=== PATIENT | female | born 1990 | race Caucasian/White ===

== ENCOUNTER 2016-10-15 13:10 | Emergency (ER) | payer BC, OTHER ==
[2016-10-15 13:19] VITALS: BP 121/74
[2016-10-15] MEDS ORDERED: Acetaminophen TAB* 325 MG PO ONE (13:56)
--- NOTE | 2016-10-15 14:01 | UC ---
Laceration HPI - HPI Summary HPI Summary: here with mother complaint of laceration on your left pointer finger occurred today at 12:45 bleed a lot and came to throbbing pain at this time hasn't taken any medication - History Of Current Complaint Chief Complaint: UCLaceration Stated Complaint: FINGER LAC Time Seen by Provider: 10/15/16 13:54 Laceration Location: Finger - Allergies/Home Medications Allergies/Adverse Reactions: Allergies Allergy/AdvReac Type Severity Reaction Status Date / Time Cefaclor [From Ceclor] Allergy Unknown Verified 10/15/16 13:19 Reaction Details Home Medications: Home Medications Ascorbic Acid TAB* [Vitamin C TAB*] 1 tab PO DAILY 10/15/16 [History Confirmed 10/15/16] PMH/Surg Hx/FS Hx/Imm Hx Previously Healthy: Yes Endocrine History Of: Reports: Dyslipidemia Denies: Diabetes, Thyroid Disease, Hyperthyroidism, Hypothyroidism Cardiovascular History Of: Denies: Cardiac Disorders, Hypertension, Pacemaker/ICD, Myocardial Infarction , Congestive Heart Failure, Atrial Fibrillation, Deep Vein Thrombosis, Bleeding Disorders Respiratory History Of: Denies: COPD, Asthma, Bronchitis, Pneumonia, Pulmonary Embolism GI/ History Of: Reports: Gastroesophageal Reflux Denies: Ulcer, Renal Disease Neurological History Of: Denies: TIA, CVA, Dementia, Seizures, Migraine Psychological History Of: Denies: Anxiety, Depression, Bipolar Disorder, Schizophrenia, Post Traumatic Stress Disorder Cancer History Of: Denies: Lung Cancer, Colorectal Cancer, Breast Cancer, Prostate Cancer, Cervical Cancer - Surgical History Surgical History: Yes Surgery Procedure, Year, and Place: appendectomy; T & A; ovarian and fallopian tube cyst removed - Family History Known Family History: Positive: Cardiac Disease - parents, Hypertension - parents Negative: Diabetes - Social History Occupation: Employed Full-time Lives: With Family Alcohol Use: Weekly Substance Use Type: None Smoking Status (MU): Former Smoker - Immunization History Most Recent Influenza Vaccination: 2014 Most Recent Tetanus Shot: 2004 Most Recent Pneumonia Vaccination: never Review of Systems Constitutional: Negative Skin: Other - laceration Eyes: Negative ENT: Negative Respiratory: Negative Cardiovascular: Negative Gastrointestinal: Negative Genitourinary: Negative Motor: Negative Neurovascular: Negative Musculoskeletal: Negative Neurological: Negative Psychological: Negative All Other Systems Reviewed And Are Negative: Yes Physical Exam Triage Information Reviewed: Yes Appearance: No Pain Distress, Well-Nourished Vital Signs: Initial Vital Signs Temp 98.1 F 10/15/16 13:14 Pulse 74 10/15/16 13:14 Resp 18 10/15/16 13:14 BP 121/74 10/15/16 13:14 Pulse Ox 99 10/15/16 13:14 Vital Signs Reviewed: Yes Eyes: Positive: Conjunctiva Clear ENT: Positive: Pharynx normal, TMs normal Neck: Positive: No Lymphadenopathy Respiratory: Positive: Lungs clear, Normal breath sounds, No respiratory distress Cardiovascular: Positive: RRR, No Murmur Abdomen Description: Positive: Nontender, Soft Bowel Sounds: Positive: Present Musculoskeletal Exam: Normal Neurological: Positive: Alert Psychological Exam: Normal Skin Exam: Other - left pointer finger with lacertion Laceration Repair - Laceration Repair 1 Description: Linear Laceration Size After Repair: Length (cm) - 1cm, Width (mm) - 2mm, Depth (mm) - 4mm Modified For Repair: No Type Injection: Local Anesthesia Used: 2.0% Lido Cleansing Completed Via Routine Prep: Yes Irrigation With Pressure Irrigation Device: Yes Closure Material: Sutures - 3 Closure Method: Single Layer Suture Of: Skin Suture Type: Nylon Laceration Course/Dx - Differential Dx - Laceration/Wound Differental Diagnoses: Laceration Provider Diagnoses: simple laceration left pointer finger Discharge - Discharge Plan Condition: Stable Disposition: HOME Patient Education Materials: Laceration (ED), Care For Your Stitches (ED) Referrals: Kiran Smith MD [Primary Care Provider] - Additional Instructions: LACERATION What is a Laceration? Laceration is the medical name for a cut. Lacerations may be large or small. Some lacerations need stitches (also called sutures) to close them so they will heal well. Stitches usually need to be placed within 6 hours of injury. There are times when a wound may be determined to be too old for stitches. Stitches are removed when the wound is strong enough to stay closed, which is usually in 3 to 15 days, depending on where the wound or cut is located. Some stitches dissolve by themselves and do not need to be removed. If you have been given a numbing medicine, there will be some pain when it wears off. The pain from the wound should begin to decrease within one day. Treatment Recommendations: Keep the wound clean and dry for at least the next two (2) days. Keep the dressing clean if at all possible. If you must work in surroundings that will dirty the wound or dressing, wear a protective covering such as a glove. If the wound does get dirty, clean it as soon as you can with mild soap and water using a patting action. Do not rub or scrub vigorously. Then pat it dry completely. If a dressing was placed on the wound, you should put a clean one on at least daily and whenever you clean the wound. You can apply antibiotic ointment such as Bacitracin ointment to the wound each time you change the dressing. Avoid using the injured part as much as possible. If the wound is near a joint , try not to bend the joint too much. Elevate the injured part above your heart whenever possible to relieve throbbing. If you had stitches put in, you should see your healthcare provider in 1 to 2 days to have the wound checked for any signs or symptoms of infection. Some stitches will dissolve by themselves. Others will need to be removed. Make an appointment with your healthcare provider to have the stitches removed on the date instructed. An antibiotic medicine may be prescribed. The medicine should be taken until it is completely gone, even if you are feeling better. If you stop taking the medicine early, the infection may not be completely gone, and the medicine may not work the next time. Call Your Doctor or Return Here IF: Your wound becomes red, warm, swollen or more painful. There are red streaks coming from the wound. You develop a fever or shaking chills. Pus or bad smelling fluid comes out of the wound. You have any other symptoms that worry you.
[2016-10-15] MEDS ORDERED: Lidocaine 2% PF* 10 ML AMP INJ ONE (14:03)
[2016-10-15] MEDS ORDERED: Lidocaine 2% PF * 5 ML VIAL ONE (14:07)
[2016-10-15] MEDS ORDERED: Tetan/Diph/Pertus SYR(Tdap)* 0.5 ML SYR(BOOSTRIX) use SYR IM ONE (14:33)
== END 2016-10-15 14:56 | disposition home or self-care (01) ==
LOC: UCEAST 13:10
DX: S61.211A Laceration without foreign body of left index finger without damage to nail, initial encounter (principal); W45.8XXA Other foreign body or object entering through skin, initial encounter; Y93.9 Activity, unspecified; Y99.9 Unspecified external cause status; E78.5 Hyperlipidemia, unspecified; Z88.8 Allergy status to other drugs, medicaments and biological substances
CPT/HCPCS: 12001; 90471; 90715; 99211; 99212; A9270-GY; G0463; J2001

== ENCOUNTER 2017-11-19 16:02 | Emergency (ER) | payer BC ==
[2017-11-19 16:19] VITALS: BP 134/78
--- NOTE | 2017-11-19 16:55 | UC ---
Skin Complaint HPI - HPI Summary HPI Summary: 27 yo female with asymptomatic bilateral leg rash x 2 weeks she did have an antecedent illness about 4-5 weeks ago severe resp illness for which she received Z-melisa no f/c no n/v/d no abd pain - History of Current Complaint Chief Complaint: UCLowerExtremity Time Seen by Provider: 11/19/17 16:30 Stated Complaint: RASH Hx Obtained From: Patient Hx Last Menstrual Period: 07/22/17 Onset/Duration: Gradual Onset, Lasting Weeks - 2 Timing: Constant Onset Severity: Mild Current Severity: Mild Pain Intensity: 0 Pain Scale Used: 0-10 Numeric Location: Other - started on left leg and spread to right Character: Redness Aggravating Factor(s): Nothing Alleviating Factor(s): Nothing Associated Signs & Symptoms: Positive: Rash - Allergy/Home Medications Allergies/Adverse Reactions: Allergies Allergy/AdvReac Type Severity Reaction Status Date / Time cefaclor Allergy Difficulty Verified 11/19/17 16:20 Breathing Review of Systems Constitutional: Negative Skin: Rash Eyes: Negative ENT: Negative Respiratory: Negative Cardiovascular: Negative Gastrointestinal: Negative Genitourinary: Negative Motor: Negative Neurovascular: Negative Musculoskeletal: Negative Neurological: Negative Psychological: Negative Is Patient Immunocompromised?: No All Other Systems Reviewed And Are Negative: Yes PMH/Surg Hx/FS Hx/Imm Hx Previously Healthy: Yes - Surgical History Surgical History: Yes Surgery Procedure, Year, and Place: appendectomy; T & A; ovarian and fallopian tube cyst removed - Family History Known Family History: Positive: Cardiac Disease - parents, Hypertension - parents, Diabetes - Social History Alcohol Use: Weekly Substance Use Type: None Smoking Status (MU): Former Smoker - Immunization History Most Recent Influenza Vaccination: 2014 Most Recent Tetanus Shot: 2004 Most Recent Pneumonia Vaccination: never Physical Exam Triage Information Reviewed: Yes Appearance: Well-Appearing, No Pain Distress, Well-Nourished Vital Signs: Initial Vital Signs Temp 98 F 11/19/17 16:13 Pulse 79 11/19/17 16:13 Resp 18 11/19/17 16:13 BP 134/78 11/19/17 16:13 Pulse Ox 100 11/19/17 16:13 Vital Signs Reviewed: Yes Eyes: Positive: Conjunctiva Clear ENT: Positive: Other - no intraoral lesions Neck: Positive: Supple, Nontender, No Lymphadenopathy Respiratory: Positive: Lungs clear, Normal breath sounds, No respiratory distress, No accessory muscle use Cardiovascular: Positive: RRR, No Murmur Abdomen Description: Positive: Nontender, No Organomegaly. Negative: CVA Tenderness (R), CVA Tenderness (L) Bowel Sounds: Positive: Present Musculoskeletal: Positive: ROM Intact, No Edema Neurological: Positive: Alert Psychological Exam: Normal Skin Exam: Other - purpura (few scatterred lesions) left >right leg/not palpable Course/Dx - Diagnoses Provider Diagnoses: vasculitis of uncertain cause Discharge - Sign-Out/Discharge Documenting (check all that apply): Discharge/Admit/Transfer - Discharge Plan Condition: Stable Disposition: HOME Patient Education Materials: Purpura (ED) Referrals: Kiran Smith MD [Primary Care Provider] - If Needed Rocio Gauthier [Medical Doctor] - As Soon As Possible - Billing Disposition and Condition Condition: STABLE Disposition: Home
[2017-11-19 18:18] LABS: ABS Basophils 0 10^3/ul (0-0.2); ABS Eosinophils 0.1 10^3/ul (0-0.6); ABS Lymphocytes 2.8 10^3/ul (1.0-4.8); ABS Monocytes 0.4 10^3/ul (0-0.8); ABS Neutrophils 3.5 10^3/ul (1.5-7.7); ABS Nucleated RBC 0 10^3/ul; Eosinophil % 1.3 % (0-6); Hematocrit 40 % (35-47); Hemoglobin 13.6 g/dl (12.0-16.0); Lymphocyte % 41.2 % (25-47); Mean Corpuscular HGB Conc 34 g/dl (31-36); Mean Corpuscular Hemoglobin 28 pg (27-31); Mean Corpuscular Volume 84 fL (80-97); Mean Platelet Volume 8.9 um3 (7.4-10.4); Nucleated Red Blood Cells % 0; Platelet Count 218 10^3/ul (150-450); Red Cell Distribution Width 13 % (10.5-15); White Blood Count 6.7 10^3/ul (3.5-10.8)
[2017-11-19 18:37] LABS: EGFR Non-African American 87.9 (>60)
== END 2017-11-19 17:10 | disposition home or self-care (01) ==
LOC: UCEAST 16:02
DX: I77.6 Arteritis, unspecified (principal); Z88.1 Allergy status to other antibiotic agents; Z87.891 Personal history of nicotine dependence
CPT/HCPCS: 36415; 80053; 81003; 85025; 85652; 86038; 86140; 99211; G0463

== ENCOUNTER 2018-03-14 13:40 | Emergency (ER) | payer BC ==
[2018-03-14 14:16] VITALS: BP 134/73
--- NOTE | 2018-03-14 14:21 | UC ---
FLU HPI - HPI Summary HPI Summary: 27 yo female presents accompanied by mother with flu-like symptoms. Pt tells me that 2 days ago she was on a plane to [place] and began to feel "sick" with body aches and fatigue. The next day she developed a fever, increased body aches, and increased fatigue. Today her symptoms have persisted. She tells me that her fever this morning was 102.5F and she took advil around 1100 and fever has improved. She denies sore throat, cough, SOB, chest pain, abdominal pain, n/v/d/ c, dysuria. - History of Current Complaint Chief Complaint: UCGeneralIllness Stated Complaint: FEVER BODYACHES COUGH SORE THROAT Time Seen by Provider: 03/14/18 14:21 Hx Obtained From: Patient, Family/Engineering Design Manager Hx Last Menstrual Period: 2 months ago Onset/Duration: Gradual Onset Severity Currently: Mild Severity Initially: Moderate Pain Intensity: 5 Pain Scale Used: 0-10 Numeric - Allergy/Home Medications Allergies/Adverse Reactions: Allergies Allergy/AdvReac Type Severity Reaction Status Date / Time cefaclor Allergy Difficulty Verified 03/14/18 14:16 Breathing Home Medications: Home Medications guaiFENesin [Mucinex] 1 tab PO BID 03/14/18 [History Confirmed 03/14/18] PMH/Surg Hx/FS Hx/Imm Hx - Additional Past Medical History Additional PMH: None - Surgical History Surgical History: Yes Surgery Procedure, Year, and Place: appendectomy; T & A; ovarian and fallopian tube cyst removed - Family History Known Family History: Positive: Cardiac Disease - parents, Hypertension - parents, Diabetes - Social History Occupation: Employed Full-time Lives: With Family Alcohol Use: Weekly Substance Use Type: None Smoking Status (MU): Former Smoker - Immunization History Most Recent Influenza Vaccination: 2014 Most Recent Tetanus Shot: 2004 Most Recent Pneumonia Vaccination: never Review of Systems Constitutional: Fever, Fatigue, Other - Body aches Skin: Negative Eyes: Negative ENT: Negative Respiratory: Negative Cardiovascular: Negative Gastrointestinal: Negative Genitourinary: Negative Neurovascular: Negative Musculoskeletal: Negative Neurological: Negative Psychological: Negative All Other Systems Reviewed And Are Negative: Yes Physical Exam - Summary Physical Exam Summary: GENERAL: NAD. Mildly ill appearing. SKIN: No rashes, sores, lesions, or open wounds. HEENT: Head: AT/NC Eyes: EOM intact. Conjunctiva clear without inflammation or discharge. Ears: Hearing grossly normal. TMs intact, no bulging, erythema, or edema. Nose: Nasal mucosa pink and moist. NTTP maxillary and frontal sinus. Throat: Posterior oropharynx without exudates, erythema. Uvula midline. NECK: Supple. Nontender. No lymphadenopathy. CHEST: CTAB. No r/r/w. No accessory muscle use. Breathing comfortably and in no distress. CV: RRR. Without m/r/g. Pulses intact. Cap refill <2seconds ABDOMEN: Soft. NTTP. No distention or guarding. No CVA tenderness. Bowel sounds present NEURO: Alert. PSYCH: Age appropriate behavior. Triage Information Reviewed: Yes Vital Signs: Initial Vital Signs Temp 99.2 F 03/14/18 14:12 Pulse 111 03/14/18 14:12 Resp 18 03/14/18 14:12 BP 134/73 03/14/18 14:12 Pulse Ox 99 03/14/18 14:12 Laboratory Tests 03/14/18 14:39 Influenza A (Rapid) Negative Influenza B (Rapid) Negative Vital Signs Reviewed: Yes Flu Course/Dx - Course Course Of Treatment: Her exam is WNL and her flu swab was negative today. Her symptoms seem to be very flu-like and I discussed this, at length, with pt and her mother. She was offered IV fluids/toradol, UA, and/or CXR but she declined. Pt would prefer to have an antibiotic "on hand" if her symptoms do not improve in 1-2 days. I discussed that her symptoms could likely be viral and to be rechecked if her symptoms worsen. Continue with tylenol/ibuprofen for fever and discomfort. - Differential Dx/Diagnosis Provider Diagnoses: Viral syndrome. Fever. Body aches Discharge - Sign-Out/Discharge Documenting (check all that apply): Patient Departure All imaging exams completed and their final reports reviewed: No Studies - Discharge Plan Condition: Stable Disposition: HOME Prescriptions: Azithromycin TAB* [Zithromax TAB (Z-HARDEEP) 250 mg #6 tabs] 2 tab PO .TODAY, THEN 1 DAILY #1 hardeep Patient Education Materials: Influenza (ED), Viral Syndrome (ED) Forms: *Work Release Referrals: Kiran Smith MD [Primary Care Provider] - Additional Instructions: If you develop a fever, shortness of breath, chest pain, new or worsening symptoms - please call your PCP or go to the ED. 1) Rest and drink plenty of clear fluids (water) 2) May take tylenol alternating with ibuprofen for any fever or discomfort 3) If your symptoms worsen or do not improve - please call or be rechecked - Billing Disposition and Condition Condition: STABLE Disposition: Home
== END 2018-03-14 15:20 | disposition home or self-care (01) ==
LOC: UCEAST 13:40
DX: B34.9 Viral infection, unspecified (principal); R50.9 Fever, unspecified; R52 Pain, unspecified; Z88.1 Allergy status to other antibiotic agents; Z87.891 Personal history of nicotine dependence
CPT/HCPCS: 99212; G0463

== ENCOUNTER 2019-05-04 20:52 | Emergency (ER) | payer BC ==
[2019-05-04 21:52] LABS: ABS Eosinophils 0.1 10^3/ul (0-0.6); ABS Lymphocytes 2.5 10^3/ul (1.0-4.8); ABS Monocytes 0.4 10^3/ul (0-0.8); ABS Neutrophils 3.3 10^3/ul (1.5-7.7); Hematocrit 38 % (35-47); Hemoglobin 13.1 g/dL (12.0-16.0); Lymphocyte % 40.1 %; Mean Corpuscular HGB Conc 35 g/dL (31-36); Mean Corpuscular Hemoglobin 29 pg (27-31); Mean Corpuscular Volume 83 fL (80-97); Mean Platelet Volume 8.1 fL (7.4-10.4); Nucleated Red Blood Cells % 0.1; Platelet Count 238 10^3/uL (150-450); Red Blood Count 4.53 10^6 /uL (3.70-4.87); Red Cell Distribution Width 13 % (10-15); White Blood Count 6.3 10^3/uL (3.5-10.8)
[2019-05-04 22:01] LABS: INR 1.01 (0.82-1.09)
[2019-05-04 22:08] LABS: ALT 24 U/L (7-52); AST 27 U/L (13-39); Albumin 4.6 g/dL (3.2-5.2); Albumin/Globulin Ratio 1.8 (1-3); Alkaline Phosphatase 42 U/L (34-104); Anion Gap 9 mmol/L (2-11); Blood Urea Nitrogen 15 mg/dL (6-24); C Reactive Protein 12.06 mg/L (<8.01); CO2 Carbon Dioxide 26 mmol/L (22-32); Calcium 9.6 mg/dL (8.6-10.3); Chloride 102 mmol/L (101-111); EGFR African American 110.5 (>60); EGFR Non-African American 91.4 (>60); Globulin 2.6 g/dL (2-4); Glucose 89 mg/dL (70-100); Sodium 137 mmol/L (135-145); Total Protein 7.2 g/dL (6.4-8.9)
[2019-05-04 22:13] LABS: HCG Pregnancy < 0.60 mIU/mL
[2019-05-05] MEDS ORDERED: Ketorolac INJ* 30 MG/ML 1 ML VIAL IM ONE (00:30)
[2019-05-05 00:52] LABS: Urine Appearance Clear; Urine Bilirubin Negative (Negative); Urine Blood 3+ (Negative); Urine Color Yellow; Urine Glucose Negative (Negative); Urine Ketones 1+ (Negative); Urine Nitrite Negative (Negative); Urine Protein Negative (Negative); Urine Specific Gravity 1.017 (1.010-1.030); Urine Urobilinogen Negative (Negative)
[2019-05-05 00:55] LABS: Urine Bacteria Absent (Absent); Urine Red Blood Cell 3+(>10/hpf) (Absent); Urine Squamous Epithelial Cell Present (Absent); Urine White Blood Cell Trace(0-5/hpf) (Absent)
[2019-05-05 01:42] VITALS: BP 118/70
--- NOTE | 2019-05-05 01:53 | ED ---
GI/ HPI - HPI Summary HPI Summary: 28-year-old female presents with vaginal bleeding for the past 8 days. She state this is not when her normal period is. Patient she states that she has been passing large clots. She is not on control. Denies any nausea or vomiting. No urinary symptoms. She states feels very weak. Has no medical conditions. No history of migraine. nonsmoker. no family history of blood clots. she has not taken anything for pain. has history of ovarian cyst. - History of Current Complaint Chief Complaint: EDVaginalBleeding Time Seen by Provider: 05/04/19 23:42 Stated Complaint: VAGINAL CLOTTING/BLEEDING PER PT Hx Last Menstrual Period: 3 weeks ago Pain Intensity: 7 - Additional Pertinent History Primary Care Physician: KYLER - Allergy/Home Medications Allergies/Adverse Reactions: Allergies Allergy/AdvReac Type Severity Reaction Status Date / Time cefaclor Allergy Difficulty Verified 05/04/19 21:04 Breathing PMH/Surg Hx/FS Hx/Imm Hx Endocrine/Hematology History: Denies: Hx Diabetes, Hx Thyroid Disease Cardiovascular History: Denies: Hx Congestive Heart Failure, Hx Deep Vein Thrombosis, Hx Hypertension , Hx Myocardial Infarction, Hx Pacemaker/ICD Respiratory History: Denies: Hx Asthma, Hx Chronic Obstructive Pulmonary Disease (COPD), Hx Lung Cancer, Hx Pneumonia, Hx Pulmonary Embolism GI History: Reports: Hx Gastroesophageal Reflux Disease Denies: Hx Ulcer History: Denies: Hx Renal Disease Musculoskeletal History: Reports: Hx Bursitis, Hx Scoliosis Neurological History: Denies: Hx Dementia, Hx Migraine, Hx Seizures, Hx Transient Ischemic Attacks (TIA) Psychiatric History: Denies: Hx Anxiety, Hx Depression, Hx Schizophrenia, Hx Bipolar Disorder - Surgical History Surgery Procedure, Year, and Place: appendectomy; T & A; ovarian and fallopian tube cyst removed Hx Anesthesia Reactions: No Infectious Disease History: No Infectious Disease History: Denies: History Other Infectious Disease, Traveled Outside the [place] in Last 30 Days - Family History Known Family History: Positive: Cardiac Disease - parents, Hypertension - parents, Diabetes, Other - Kidney stones - Social History Alcohol Use: Occasionally Substance Use Type: Reports: None Smoking Status (MU): Former Smoker Review of Systems Negative: Fever Negative: Chest Pain Negative: Shortness Of Breath Positive: Abdominal Pain, Other - vaginal bleeding All Other Systems Reviewed And Are Negative: Yes Physical Exam Triage Information Reviewed: Yes Vital Signs On Initial Exam: Initial Vitals Temp Pulse Resp BP Pulse Ox 99.1 F 96 16 145/98 100 05/04/19 21:00 05/04/19 21:00 05/04/19 21:00 05/04/19 21:00 05/04/19 21:00 Vital Signs Reviewed: Yes Appearance: Positive: Well-Appearing Skin: Positive: Warm, Dry Head/Face: Positive: Normal Head/Face Inspection Eyes: Positive: Normal, Conjunctiva Clear ENT: Positive: Pharynx normal Respiratory/Lung Sounds: Positive: Clear to Auscultation, Breath Sounds Present Cardiovascular: Positive: Normal, RRR Abdomen Description: Positive: Soft, Other: - tenderness in lower abd Bowel Sounds: Positive: Present Musculoskeletal: Positive: Normal Neurological: Positive: Normal Psychiatric: Positive: Normal Procedures - Sedation Patient Received Moderate/Deep Sedation with Procedure: No Diagnostics - Vital Signs Vital Signs Temp Pulse Resp BP Pulse Ox 05/05/19 01:41 99.0 F 84 17 118/70 99 05/04/19 22:45 98.0 F 97 16 141/69 100 05/04/19 21:00 99.1 F 96 16 145/98 100 - Laboratory Lab Results: Lab Results 05/04/19 05/04/19 05/04/19 Range/Units 21:40 21:40 21:40 WBC 6.3 (3.5-10.8) 10^3/uL RBC 4.53 (3.70-4.87) 10^6 /uL Hgb 13.1 (12.0-16.0) g/dL Hct 38 (35-47) % MCV 83 (80-97) fL MCH 29 (27-31) pg MCHC 35 (31-36) g/dL RDW 13 (10-15) % Plt Count 238 (150-450) 10^3/uL MPV 8.1 (7.4-10.4) fL Neut % (Auto) 51.7 % Lymph % (Auto) 40.1 % [place] % (Auto) 6.7 % Eos % (Auto) 1.0 % Baso % (Auto) 0.5 % Absolute Neuts (auto) 3.3 (1.5-7.7) 10^3/ul Absolute Lymphs (auto) 2.5 (1.0-4.8) 10^3/ul Absolute Monos (auto) 0.4 (0-0.8) 10^3/ul Absolute Eos (auto) 0.1 (0-0.6) 10^3/ul Absolute Basos (auto) 0.0 (0-0.2) 10^3/ul Absolute Nucleated RBC 0.0 10^3/ul Nucleated RBC % 0.1 INR (Anticoag Therapy) 1.01 (0.82-1.09) Sodium 137 (135-145) mmol/L Potassium 4.0 (3.5-5.0) mmol/L Chloride 102 (101-111) mmol/L Carbon Dioxide 26 (22-32) mmol/L Anion Gap 9 (2-11) mmol/L BUN 15 (6-24) mg/dL Creatinine 0.75 (0.51-0.95) mg/dL Est GFR ( Amer) 110.5 (>60) Est GFR (Non-Af Amer) 91.4 (>60) BUN/Creatinine Ratio 20.0 (8-20) Glucose 89 (70-100) mg/dL Calcium 9.6 (8.6-10.3) mg/dL Total Bilirubin 0.30 (0.2-1.0) mg/dL AST 27 (13-39) U/L ALT 24 (7-52) U/L Alkaline Phosphatase 42 (34-104) U/L C-Reactive Protein 12.06 H (<8.01) mg/L Total Protein 7.2 (6.4-8.9) g/dL Albumin 4.6 (3.2-5.2) g/dL Globulin 2.6 (2-4) g/dL Albumin/Globulin Ratio 1.8 (1-3) Beta HCG, Quant < 0.60 mIU/mL Urine Color Urine Appearance Urine pH (5-9) Ur Specific [place] (1.010-1.030) Urine Protein (Negative) Urine Ketones (Negative) Urine Blood (Negative) Urine Nitrate (Negative) Urine Bilirubin (Negative) Urine Urobilinogen (Negative) Ur Leukocyte Esterase (Negative) Urine WBC (Auto) (Absent) Urine RBC (Auto) (Absent) Ur Squamous Epith Cells (Absent) Urine Bacteria (Absent) Urine Glucose (Negative) 05/05/19 Range/Units 00:40 WBC (3.5-10.8) 10^3/uL RBC (3.70-4.87) 10^6 /uL Hgb (12.0-16.0) g/dL Hct (35-47) % MCV (80-97) fL MCH (27-31) pg MCHC (31-36) g/dL RDW (10-15) % Plt Count (150-450) 10^3/uL MPV (7.4-10.4) fL Neut % (Auto) % Lymph % (Auto) % [place] % (Auto) % Eos % (Auto) % Baso % (Auto) % Absolute Neuts (auto) (1.5-7.7) 10^3/ul Absolute Lymphs (auto) (1.0-4.8) 10^3/ul Absolute Monos (auto) (0-0.8) 10^3/ul Absolute Eos (auto) (0-0.6) 10^3/ul Absolute Basos (auto) (0-0.2) 10^3/ul Absolute Nucleated RBC 10^3/ul Nucleated RBC % INR (Anticoag Therapy) (0.82-1.09) Sodium (135-145) mmol/L Potassium (3.5-5.0) mmol/L Chloride (101-111) mmol/L Carbon Dioxide (22-32) mmol/L Anion Gap (2-11) mmol/L BUN (6-24) mg/dL Creatinine (0.51-0.95) mg/dL Est GFR ( Amer) (>60) Est GFR (Non-Af Amer) (>60) BUN/Creatinine Ratio (8-20) Glucose (70-100) mg/dL Calcium (8.6-10.3) mg/dL Total Bilirubin (0.2-1.0) mg/dL AST (13-39) U/L ALT (7-52) U/L Alkaline Phosphatase (34-104) U/L C-Reactive Protein (<8.01) mg/L Total Protein (6.4-8.9) g/dL Albumin (3.2-5.2) g/dL Globulin (2-4) g/dL Albumin/Globulin Ratio (1-3) Beta HCG, Quant mIU/mL Urine Color Yellow Urine Appearance Clear Urine pH 6.0 (5-9) Ur Specific [place] 1.017 (1.010-1.030) Urine Protein Negative (Negative) Urine Ketones 1+ A (Negative) Urine Blood 3+ A (Negative) Urine Nitrate Negative (Negative) Urine Bilirubin Negative (Negative) Urine Urobilinogen Negative (Negative) Ur Leukocyte Esterase Negative (Negative) Urine WBC (Auto) Trace(0-5/hpf) (Absent) Urine RBC (Auto) 3+(>10/hpf) A (Absent) Ur Squamous Epith Cells Present A (Absent) Urine Bacteria Absent (Absent) Urine Glucose Negative (Negative) Result Diagrams: 05/04/19 21:40 05/04/19 21:40 Lab Statement: Any lab studies that have been ordered have been reviewed, and results considered in the medical decision making process. - Ultrasound No standard instances Ultrasound Interpretation Completed By: Radiologist Summary of Ultrasound Findings: IMPRESSION: 1. Endometrial canal debris correlating with patient's symptomatology, although no visualized etiology. 2. Sonographically normal ovaries. GIGU Course/Dx - Course Course Of Treatment: 28-year-old female presents with vaginal bleeding for the past 8 days. She state this is not when her normal period is. Patient she states that she has been passing large clots. She is not on control. Denies any nausea or vomiting. No urinary symptoms. She states feels very weak. Has no medical conditions. No history of migraine. nonsmoker. no family history of blood clots. On exam has tenderness lower abdomen. H&H is stable. Ultrasound shows no abnormalities. Discussed will start patient on Provera. will have follow-up with JOB PLACEMENT SPECIALIST. Patient understands and agrees plan. - Diagnoses Differential Diagnoses - Female: Ovarian Cyst, , Other - vaginal bleeding Provider Diagnoses: Dysfunctional uterine bleeding Discharge ED - Sign-Out/Discharge Documenting (check all that apply): Patient Departure - Discharge Plan Condition: Good Disposition: HOME Prescriptions: medroxyPROGESTERone TAB* [Provera TAB*] 20 mg PO TID #21 tab Patient Education Materials: Dysfunctional Uterine Bleeding (ED) Referrals: Kiran Smith MD [Primary Care Provider] - Herberth Jaramillo MD [Medical Doctor] - Additional Instructions: take provera three times a day for 7 days, then restart normal control take ibuprofen every 8 hours for vaginal bleeding and pain follow up with branch employment coordinator Return to ED if develop any new or worsening symptoms - Billing Disposition and Condition Condition: GOOD Disposition: Home
== END 2019-05-05 01:41 | disposition home or self-care (01) ==
LOC: ED 20:52
DX: N93.8 Other specified abnormal uterine and vaginal bleeding (principal); K21.9 Gastro-esophageal reflux disease without esophagitis; Z87.891 Personal history of nicotine dependence; Z88.1 Allergy status to other antibiotic agents
CPT/HCPCS: 36415; 76830; 80053; 81003; 81015; 84702; 85025; 85610; 86140; 87086; 96372; 99282; J1885

== ENCOUNTER 2021-06-25 20:10 | Inpatient (IN) ==
[2021-06-25] MEDS ORDERED: Lactated Ringers 1000 ml BAG 1,000 ML IV ONE (23:18)
[2021-06-25] MEDS ORDERED: OBEPIDURAL 250 ML EPIDURAL ONE (23:35)
[2021-06-25 23:39] LABS: ABS Lymphocytes 2.8 10^3/ul (1.0-4.8); ABS Monocytes 0.6 10^3/ul (0-0.8); ABS Neutrophils 6.7 10^3/ul (1.5-7.7); Eosinophil % 0.1 %; Hematocrit 41 % (35-47); Lymphocyte % 27.6 %; Mean Corpuscular HGB Conc 35 g/dL (31-36); Mean Corpuscular Hemoglobin 29 pg (27-31); Mean Corpuscular Volume 84 fL (80-97); Mean Platelet Volume 11.2 fL (7.4-10.4); Nucleated Red Blood Cells % 0.1; Platelet Count 139 10^3/uL (150-450); Red Blood Count 4.81 10^6 /uL (3.70-4.87); Red Cell Distribution Width 14 % (10-15); White Blood Count 10.1 10^3/uL (3.5-10.8)
[2021-06-26 00:10] LABS: Urine Benzodiazepine Screen None Detected (None Detect); Urine Cannabinoids Screen None Detected (None Detect); Urine Opiates Screen None Detected (None Detect)
[2021-06-26] MEDS ORDERED: Lactated Ringers 1000 ml BAG 1,000 ML IV ONE (00:22)
[2021-06-26] MEDS ORDERED: Sodium Citrate/Citric Acid LIQ 15 ML UDC PO PRN (00:22)
[2021-06-26] MEDS ORDERED: Bupivacaine 0.25% SDV PF 10 ML VIAL INJ ONE (00:27)
[2021-06-26] MEDS ORDERED: Lactated Ringers 1000 ml BAG 1,000 ML IV SCH ×2 (01:00→07:00)
[2021-06-26] MEDS ORDERED: OBEPIDURAL 250 ML EPIDURAL SCH (01:00)
[2021-06-26 02:35] LABS: Urine Appearance Cloudy; Urine Bilirubin Negative (Negative); Urine Blood 3+ (Negative); Urine Color Yellow; Urine Glucose Negative (Negative); Urine Ketones 1+ (Negative); Urine Nitrite Negative (Negative); Urine Protein Negative (Negative); Urine Specific Gravity 1.012 (1.002-1.030); Urine Urobilinogen Negative (Negative)
[2021-06-26 02:43] LABS: Urine Bacteria Absent (Absent); Urine Red Blood Cell 3+(>10/hpf) (Absent); Urine Squamous Epithelial Cell Present (Absent); Urine White Blood Cell 1+(6-10/hpf) (Absent)
[2021-06-26] MEDS ORDERED: Oxytocin in LR 20 UNITS/1,000 ML BAG IVPB ONE (04:51)
[2021-06-26] MEDS ORDERED: Oxytocin in LR 20 UNITS/1,000 ML BAG IVPB SCH (06:00)
[2021-06-26] MEDS ORDERED: RHO D Immune Globulin (HUMAN) 300 MCG = 1,500 I.U. INJ IM ONE (06:42)
[2021-06-27 06:49] LABS: ABS Eosinophils 0.1 10^3/ul (0-0.6); ABS Monocytes 0.5 10^3/ul (0-0.8); ABS Neutrophils 6.4 10^3/ul (1.5-7.7); Eosinophil % 0.7 %; Hematocrit 31 % (35-47); Hemoglobin 10.7 g/dL (12.0-16.0); Lymphocyte % 30.3 %; Mean Corpuscular HGB Conc 35 g/dL (31-36); Mean Corpuscular Hemoglobin 30 pg (27-31); Mean Corpuscular Volume 87 fL (80-97); Mean Platelet Volume 10.4 fL (7.4-10.4); Platelet Count 111 10^3/uL (150-450); Red Blood Count 3.55 10^6 /uL (3.70-4.87); Red Cell Distribution Width 14 % (10-15); White Blood Count 9.9 10^3/uL (3.5-10.8)
[2021-06-27] MEDS: Witch Hazel PAD JAR TOPICAL PRN (08:33)
[2021-06-27] MEDS: Dibucaine 1% OINT 28.35 GM TUBE PR PRN (08:33)
[2021-06-28 08:27] VITALS: BP 122/85
[2021-06-28] MEDS: Witch Hazel PAD JAR TOPICAL PRN (12:34)
[2021-06-28] MEDS: Dibucaine 1% OINT 28.35 GM TUBE PR PRN (12:34)
[2021-06-28] MEDS ORDERED: Measles, Mumps,Rubella VACC 0.5 ML/VIAL SUBCUT ONE (12:47)
[2021-06-28] MEDS ORDERED: Measles, Mumps,Rubella VACC 0.5 ML/VIAL ONE (12:51)
== END 2021-06-28 16:44 | disposition home or self-care (01) | DRG 807 ==
LOC: MCHOBOUT 20:10 → MCHOB 23:18
PROVIDERS: ADMIT Midwife; ATTEND Midwife